=== PATIENT | female | born 1980 | race Caucasian/White ===

== ENCOUNTER 2017-03-28 10:38 | Emergency (ER) | payer BC ==
[~2017-03-28] VITALS: Ht 157.5 cm; Wt 69.5 kg
[~2017-03-28 10:38] MED LIST: BUTA1CAP57; DOCU-131 PO; IBUP-1222 PO; IBUP200T48 PO; LEVO112C2; LEVO125T5 PO; ONDA4TAB10 PO; OXYC-302 PO; OXYC-307 PO; PREN1TAB27 PO; [UNRECOGNIZED DRUG - CODE] PO
[2017-03-28 10:40] VITALS: BP 148/95
[2017-03-28] MEDS ORDERED: ONDANSETRON 2MG/ML, 2ML IVPush ONE (13:00)
[2017-03-28] MEDS ORDERED: SODIUM CHLORIDE FLUSH 10ML SYR IVF ONE (13:00)
[2017-03-28] MEDS ORDERED: HYDROmorphone 1 MG/ML, 1ML IVPush PRN (13:00)
[2017-03-28] MEDS ORDERED: HYDROmorphone 1 MG/ML, 1ML IM ONE (13:00)
[2017-03-28] MEDS ORDERED: SODIUM CHLORIDE 0.9% 1,000ML IVBOLUS ONE (13:00)
[2017-03-28] MEDS ORDERED: ONDANSETRON ODT 4 MG PO ONE (13:00)
[2017-03-28] MEDS ORDERED: ONDANSETRON ODT 4 MG ONE (13:17)
[2017-03-28] MEDS ORDERED: HYDROmorphone 2 MG/ML, 1ML ONE ×3 (13:18→15:19)
== END 2017-03-28 15:21 | disposition home or self-care (01) ==
LOC: ED 13:44
DX: S52.572A Other intraarticular fracture of lower end of left radius, initial encounter for closed fracture (principal); E03.9 Hypothyroidism, unspecified; X50.9XXA Other and unspecified overexertion or strenuous movements or postures, initial encounter; Y93.89 Activity, other specified; Y92.89 Other specified places as the place of occurrence of the external cause; Y99.8 Other external cause status
CPT/HCPCS: 29125; 73110; 73130; 73200; 96372; 99284; J1170; Q0162

== ENCOUNTER 2017-04-03 12:59 | Day surgery (SDC) | payer BC ==
[~2017-04-03] VITALS: Ht 157.5 cm; Wt 68.1 kg
[2017-04-03 13:58] VITALS: BP 129/90
[2017-04-03] MEDS ORDERED: LACTATED RINGERS 1,000 ML IV SCH (14:03)
[2017-04-03] MEDS ORDERED: TOPI25TA32 PO (14:05)
[2017-04-03] MEDS ORDERED: OXYC1TAB7 PO (14:05)
[2017-04-03 14:31] LABS: HCG UR LOT HCG7030192
[2017-04-03 14:36] LABS: HCG UR OBC PASS
[2017-04-03] MEDS ORDERED: FENTANYL PF 250 MCG/5ML ONE (14:43)
[2017-04-03] MEDS ORDERED: MIDAZOLAM 1 MG/ML, 2ML ONE (14:43)
[2017-04-03] MEDS ORDERED: CEFAZOLIN 1,000 MG ONE (14:44)
[2017-04-03] MEDS ORDERED: ONDANSETRON 2MG/ML, 2ML ONE (14:44)
[2017-04-03] MEDS ORDERED: DEXAMETHASONE 4 MG/ML, 1ML ONE (14:44)
[2017-04-03] MEDS ORDERED: GLYCOPYRROLATE 0.2MG/1ML, 5ML ONE (14:44)
[2017-04-03] MEDS ORDERED: ROCURONIUM 10 MG/ML,10ML ONE ×2 (14:44)
[2017-04-03] MEDS ORDERED: NEOSTIGMINE 1 MG/ML, 10ML ONE (14:44)
[2017-04-03] MEDS ORDERED: SUCCINYLCHOLINE 20 MG/ML, 10ML ONE (14:44)
[2017-04-03] MEDS ORDERED: PROPOFOL 10 MG/ML, 20ML ONE (14:44)
[2017-04-03] MEDS ORDERED: SCOPOLAMINE PATCH, 1.5MG PATCH.TD72 TD ONE ×2 (15:31)
[2017-04-03] MEDS ORDERED: EPINEPHRINE 1 MG/ML, 1ML ONE (15:37)
[2017-04-03] MEDS ORDERED: BUPIVACAINE/PF 0.5% ONE (15:37)
[2017-04-03] MEDS ORDERED: FENTANYL PF 100 MCG/2ML IV PRN (16:30)
[2017-04-03] MEDS ORDERED: ACETAMINOPHEN 325 MG TABLET PO PRN (16:30)
[2017-04-03] MEDS ORDERED: LABETALOL 5MG/ML, 20ML IV PRN (16:30)
[2017-04-03] MEDS ORDERED: MEPERIDINE/PF 25MG/0.5ML IVPush PRN (16:30)
[2017-04-03] MEDS ORDERED: ALBUTEROL SULFATE 2.5 MG/3 ML NPPB PRN (16:30)
[2017-04-03] MEDS ORDERED: hydrALAzine 20 MG/ML, 1ML IV PRN (16:30)
[2017-04-03] MEDS ORDERED: LORazepam 2 MG/ML, 1ML IVPush PRN (16:30)
[2017-04-03] MEDS ORDERED: OXYcodone 5 MG/5 ML ORAL.SOL UDC PO PRN (16:30)
[2017-04-03] MEDS ORDERED: PROMETHAZINE 25 MG/ML, 1ML IV PRN (16:30)
[2017-04-03] MEDS ORDERED: HYDROmorphone 1 MG/ML, 1ML IV PRN (16:30)
[2017-04-03] MEDS ORDERED: ACETAMINOPHEN 325 MG TABLET ONE (17:12)
[2017-04-03] MEDS ORDERED: ACETAMINOPHEN 650 MG/20.3 ML UDC ONE (17:12)
[2017-04-03] MEDS ORDERED: OXYcodone 5 MG/5 ML ORAL.SOL UDC ONE (17:12)
== END 2017-04-03 18:35 ==
LOC: OUT 12:59
PROVIDERS: ATTEND Orthopaedic Surgery
DX: S52.572A Other intraarticular fracture of lower end of left radius, initial encounter for closed fracture (principal); X58.XXXA Exposure to other specified factors, initial encounter; Y93.89 Activity, other specified; Y92.89 Other specified places as the place of occurrence of the external cause; Y99.8 Other external cause status
CPT/HCPCS: 25608; 73100; 76000; 81025; C1713; C1776; J0690; J1100; J2250; J2405; J2704; J3010; J7120; J0171; J2710; J3490; J0330

== ENCOUNTER 2019-03-30 21:49 | Emergency (ER) | payer BC ==
[~2019-03-30] VITALS: Ht 157.5 cm; Wt 68.6 kg
[~2019-03-30 21:49] MED LIST changes: -IBUP200T48 PO; +IBUP200T49 PO; +OXYC1TAB7 PO; +TOPI25TA32 PO
[2019-03-30] MEDS ORDERED: ONDANSETRON 2MG/ML, 2ML ONE (22:55)
[2019-03-30] MEDS ORDERED: KETOROLAC 30 MG/1 ML ONE (22:55)
[2019-03-30] MEDS ORDERED: MORPHINE SULFATE 4 MG/ML, 1ML ONE (22:56)
[2019-03-30] MEDS ORDERED: ONDANSETRON 2MG/ML, 2ML IVPush ONE (23:00)
[2019-03-30] MEDS ORDERED: KETOROLAC 30 MG/1 ML IVPush ONE (23:00)
[2019-03-30] MEDS ORDERED: SODIUM CHLORIDE FLUSH 10ML SYR IVF ONE (23:00)
[2019-03-30 23:01] LABS: BASOPHILS # (AUTO) 0.04 x10^3/uL (0-0.1); BASOPHILS % (AUTO) 0 % (0-1); EOSINOPHILS # (AUTO) 0.17 x10^3/uL (0-0.4); EOSINOPHILS % (AUTO) 2 % (1-7); LYMPHOCYTES # (AUTO) 1.15 x10^3/uL (1-3.4); LYMPHOCYTES % (AUTO) 10 % (22-44); MD NO; MEAN CORPUSCULAR HEMOGLOBIN 30.8 pg (27.0-34.8); MEAN CORPUSCULAR HGB CONC 33.2 g/dL (32.4-35.8); MEAN CORPUSCULAR VOLUME 92.8 fL (80-100); MEAN PLATELET VOLUME 9.1 fL (7.4-10.4); MONOCYTES # (AUTO) 0.23 x10^3/uL (0.2-0.8); MONOCYTES % (AUTO) 2 % (2-9); NEUTROPHILS # (AUTO) 10.12 x10^3/uL (1.8-6.8); NEUTROPHILS % (AUTO) 86 % (42-75); PLATELET COUNT 320 x10^3/uL (130-400); RED CELL DISTRIBUTION WIDTH 12.3 % (9.6-15.2)
[2019-03-30 23:09] LABS: ALANINE AMINOTRANSFERASE 33 U/L (12-78); ALBUMIN 3.9 g/dL (3.4-5.0); ANION GAP 7 mmol/L (5-15); CALCIUM 8.7 mg/dL (8.5-10.1); CHLORIDE 109 mmol/L (98-107); CREATININE 0.86 mg/dL (0.55-1.02)
[2019-03-30] MEDS: MORPHINE SULFATE 4 MG/ML, 1ML IVPush PRN (23:12)
[2019-03-30 23:14] LABS: ALKALINE PHOSPHATASE 109 U/L (45-117); BILIRUBIN,TOTAL 0.3 mg/dL (0.2-1.0); TOTAL PROTEIN 7.5 g/dL (6.4-8.2)
--- NOTE | 2019-03-30 23:35 | NUR ---
PT BACK FROM CT.
--- NOTE | 2019-03-30 23:35 | NUR ---
PT C/O LLQ PAIN RATED /10. STATES ONSET THIS AFTERNOON C 4 EPISODES OF N/V & D. DENIES ANY FEVER OR CHILLS. MEDS PER JUN.
--- NOTE | 2019-03-30 23:51 | NUR ---
PT STATES PAIN IS 6/10 CURRENTLY. AMULATORY TO RESTROOM FOR URINE SAMPLE.
[2019-03-31 00:57] LABS: CULTURE INDICATED? NO; MICROSCOPIC AUTO
[2019-03-31] MEDS ORDERED: MORPHINE SULFATE 4 MG/ML, 1ML ONE (01:19)
[2019-03-31] MEDS ORDERED: HYDROcodone/APAP 5/325 TABLET ONE (01:19)
[2019-03-31] MEDS: MORPHINE SULFATE 4 MG/ML, 1ML IVPush PRN (01:22)
[2019-03-31 01:23] VITALS: BP 100/68
[2019-03-31] MEDS ORDERED: HYDROcodone/APAP 5/325 TABLET PO ONE (01:30)
[2019-03-31] MEDS ORDERED: MORPHINE SULFATE 4 MG/ML, 1ML IVPush PRN (01:30)
[2019-03-31] MEDS ORDERED: PROMETHAZINE 25 MG/ML, 1ML ONE (01:38)
--- NOTE | 2019-03-31 01:50 | NUR ---
ATTEMPTING TO DC PT. FEELING N/V. AWARE. MED PER JUN. WILL CTM.
[2019-03-31] MEDS ORDERED: PROMETHAZINE 25 MG/ML, 1ML IM ONE (02:00)
== END 2019-03-31 02:15 | disposition home or self-care (01) ==
LOC: ED 03-31 00:13
DX: N20.1 Calculus of ureter (principal); G43.909 Migraine, unspecified, not intractable, without status migrainosus; E03.9 Hypothyroidism, unspecified
CPT/HCPCS: 36415; 74176; 80053; 81001; 83690; 84703; 85025; 96372; 96374; 96375; 96376; 99284; J1885; J2270; J2405; J2550

== ENCOUNTER 2019-04-13 19:05 | Emergency (ER) | payer BC ==
[~2019-04-13] VITALS: Ht 160 cm; Wt 67.0 kg
--- NOTE | 2019-04-13 20:24 | NUR ---
PT MOVED TO TRAUMA 2. IV PLACED, PT PLACED ON ALL MONITORING EQUIPMENT, SET UP FOR ENDOSCOPY/SEDATION. QUESTIONS ANSWERED BY PT AND FAMILY. CALL LIGHT WITHIN REACH.
[2019-04-13] MEDS ORDERED: ONDANSETRON 2MG/ML, 2ML ONE (20:43)
[2019-04-13] MEDS ORDERED: PROPOFOL 10 MG/ML, 20ML ONE (20:43)
--- NOTE | 2019-04-13 20:48 | NUR ---
RECEIVED REPORT FROM MANAN SELLERS, ASSUMING CARE OF PT. PT C/O N/V, NOTIFIED, ORDERS RECEIVED FOR ZOFRAN. FAMILY AT BEDSIDE. ENDO AT BEDSIDE. AWAITING GI DOC AT THIS TIME. VSS.
--- NOTE | 2019-04-13 20:53 | NUR ---
GI TO BEDSIDE AT THIS TIME, CURRENTLY ASSESSING PT AND UPDATING ON POC.
[2019-04-13] MEDS ORDERED: ONDANSETRON 2MG/ML, 2ML IVPush ONE (21:00)
[2019-04-13] MEDS ORDERED: PROPOFOL 10 MG/ML, 20ML IVPush ONE (21:00)
[2019-04-13] MEDS ORDERED: LIDOCAINE 2% VISCOUS 15 ML UDC ONE (21:04)
[2019-04-13 21:44] VITALS: BP 123/57
--- NOTE | 2019-04-13 21:47 | NUR ---
PT CURRENTLY WAKING UP FROM CONSCIOUS SEDATION, A&OX4, VSS. CURRENTLY SIPPING SMALL SIPS OF WATER SUCCESSFULLY.
== END 2019-04-13 22:05 | disposition home or self-care (01) ==
LOC: ED 20:00
DX: T18.128A Food in esophagus causing other injury, initial encounter (principal); E03.9 Hypothyroidism, unspecified; X58.XXXA Exposure to other specified factors, initial encounter; Y93.89 Activity, other specified; Y92.89 Other specified places as the place of occurrence of the external cause; Y99.8 Other external cause status
CPT/HCPCS: 43247; 96374; 99285; J2405; 99283

== ENCOUNTER 2019-09-24 20:31 | Emergency (ER) | payer BC ==
[~2019-09-24] VITALS: Ht 157.5 cm; Wt 70.5 kg
[2019-09-24 20:34] VITALS: BP 142/78
--- NOTE | 2019-09-24 20:40 | NUR ---
red cap made aware pt possibly needing Endo Team.
[2019-09-24] MEDS ORDERED: ONDANSETRON 2MG/ML, 2ML ONE (21:00)
--- NOTE | 2019-09-24 21:05 | NUR ---
PROVIDER AT BEDSIDE. MEDS ADMIN PER JUN. PT VOMITTING UP SECRETIONS. AMINATA. SPOUSE AT BEDSIDE.
[2019-09-24] MEDS ORDERED: GLUCAGON 1 MG IVPush ONE (21:30)
[2019-09-24] MEDS ORDERED: ONDANSETRON 2MG/ML, 2ML IVPush ONE (21:30)
--- NOTE | 2019-09-24 21:53 | NUR ---
PT STATES SHE FELT THE FOOD MOVING, PROVIDED PT SODA TO DRINK. PT STATES THE SODA WORKED AND FOOD HAS PASSED THE ESOPHOGUS.
== END 2019-09-24 21:56 | disposition home or self-care (01) ==
LOC: ED 21:55
DX: T18.128A Food in esophagus causing other injury, initial encounter (principal); E03.9 Hypothyroidism, unspecified; G43.909 Migraine, unspecified, not intractable, without status migrainosus; X58.XXXA Exposure to other specified factors, initial encounter; Y93.89 Activity, other specified; Y92.89 Other specified places as the place of occurrence of the external cause; Y99.8 Other external cause status
CPT/HCPCS: 96374; 99283; J2405

== ENCOUNTER 2020-01-15 20:26 | Observation (INO) | payer BC ==
[~2020-01-15] VITALS: Ht 157.5 cm; Wt 73.5 kg
--- NOTE | 2020-01-15 20:35 | NUR ---
ASSESSMENT MADE. CHART UP FOR MD TO SEE.
--- NOTE | 2020-01-15 20:41 | NUR ---
ERP AT BEDSIDE.
[2020-01-15] MEDS ORDERED: DIPHENHYDRAMINE 50 MG/ML, 1ML ONE ×2 (20:57→22:04)
[2020-01-15] MEDS ORDERED: KETOROLAC 30 MG/1 ML ONE (20:57)
[2020-01-15] MEDS ORDERED: METOCLOPRAMIDE 5 MG/ML, 2ML ONE ×2 (20:57→22:04)
[2020-01-15] MEDS ORDERED: KETOROLAC 30 MG/1 ML IVPush ONE (21:00)
[2020-01-15] MEDS ORDERED: DIPHENHYDRAMINE 50 MG/ML, 1ML IVPush ONE (21:00)
[2020-01-15] MEDS ORDERED: METOCLOPRAMIDE 5 MG/ML, 2ML IVPush ONE (21:00)
--- NOTE | 2020-01-15 21:15 | NUR ---
PIV PLACED, PATIENT MEDICATED PER EMAR. TOLERATED WELL
--- NOTE | 2020-01-15 21:44 | NUR ---
PATIENT TO CT
[2020-01-15] MEDS ORDERED: MAGNESIUM SULFATE PMX 2GM/50ML 50 ML ONE (22:07)
[2020-01-15] MEDS ORDERED: DEXAMETHASONE 4 MG/ML, 1ML ONE (22:07)
--- NOTE | 2020-01-15 22:19 | NUR ---
PATIENT MEDICATED PER EMAR
[2020-01-15] MEDS ORDERED: DEXAMETHASONE 4 MG/ML, 1ML IVPush ONE (22:30)
[2020-01-15] MEDS ORDERED: MAGNESIUM SULFATE PMX 2GM/50ML 50 ML IV ONE (22:30)
--- NOTE | 2020-01-15 23:21 | NUR ---
Patient resting on gurney, respirations even and unlabored, states mild relief from migraine, Informed patient that medication has about 1hr left to infuse, patient agreeable to finish medication. Monitoring in place, AMINATA RAMIREZ. Call light in reach
--- NOTE | 2020-01-16 00:08 | NUR ---
ERP to room for re-evaluation, mag sulfate complete. Patient report no improvement with migraine. Patient to be admitted
[2020-01-16 00:24] LABS: MEAN CORPUSCULAR HEMOGLOBIN 30.4 pg (27.0-34.8); MEAN CORPUSCULAR HGB CONC 33.2 g/dL (32.4-35.8); MEAN PLATELET VOLUME 9.4 fL (7.4-10.4); PLATELET COUNT 253 x10^3/uL (130-400); RED CELL DISTRIBUTION WIDTH 12.8 % (9.6-15.2)
--- NOTE | 2020-01-16 00:29 | NUR ---
Report given to MARLO Shore. Plan of care discussed. IVF infusing at time of transfer
[2020-01-16] MEDS ORDERED: SODIUM CHLORIDE 0.9% 1,000ML IVBOLUS ONE (00:30)
[2020-01-16 00:35] LABS: ANION GAP 6 mmol/L (5-15); CALCIUM 8.4 mg/dL (8.5-10.1); CHLORIDE 109 mmol/L (98-107)
[2020-01-16 00:56] LABS: BASOPHILS # (AUTO) 0.02 x10^3/uL (0-0.1); BASOPHILS % (AUTO) 0 % (0-1); EOSINOPHILS # (AUTO) 0.27 x10^3/uL (0-0.4); EOSINOPHILS % (AUTO) 3 % (1-7); LYMPHOCYTES % (AUTO) 16 % (22-44); MD SCAN; MONOCYTES # (AUTO) 0.16 x10^3/uL (0.2-0.8); MONOCYTES % (AUTO) 2 % (2-9); NEUTROPHILS # (AUTO) 7.17 x10^3/uL (1.8-6.8); NEUTROPHILS % (AUTO) 79 % (42-75)
[2020-01-16] MEDS ORDERED: PANT20TA2 PO (01:35)
[2020-01-16] MEDS ORDERED: PANT40TA3 PO (01:37)
[2020-01-16] MEDS ORDERED: GALC120P INJ (01:38)
[2020-01-16] MEDS ORDERED: ZOLP10TA PO (01:39)
[2020-01-16 01:54] VITALS: BP 105/64
[2020-01-16] MEDS ORDERED: TRAZODONE 50MG TABLET PO PRN (02:00)
[2020-01-16] MEDS ORDERED: LABETALOL 5MG/ML, 20ML IVPush PRN (02:00)
[2020-01-16] MEDS ORDERED: ACETAMINOPHEN 325 MG TABLET PO PRN (02:00)
[2020-01-16] MEDS: LACTATED RINGERS 1,000 ML IV SCH ×2 (02:46→11:28)
[2020-01-16] MEDS: HYDROmorphone 2 MG/ML, 1ML IVPush PRN ×3 (02:46→07:13)
[2020-01-16 03:08] LABS: FREE T4 (FREE THYROXINE) 0.72 ng/dL (0.76-1.46)
[2020-01-16] MEDS: ONDANSETRON 2MG/ML, 2ML IVPush PRN ×2 (03:16→22:12)
[2020-01-16 05:27] LABS: ALBUMIN 3.5 g/dL (3.4-5.0); ANION GAP 9 mmol/L (5-15); CALCIUM 7.7 mg/dL (8.5-10.1); CHLORIDE 112 mmol/L (98-107)
[2020-01-16 05:28] LABS: CREATININE 0.82 mg/dL (0.55-1.02)
[2020-01-16 05:59] LABS: HCG UR SG 1.011 (1.003-1.030)
[2020-01-16] MEDS: LEVOTHYROXINE 125 MCG TABLET PO SCH (07:12)
[2020-01-16] MEDS: PANTOPRAZOLE 40MG TABLET PO SCH (07:12)
[2020-01-16 09:01] VITALS: BP 94/56
[2020-01-16] MEDS: DIPHENHYDRAMINE 50 MG/ML, 1ML IVPush PRN ×2 (11:24→22:12)
[2020-01-16] MEDS: METOCLOPRAMIDE 5 MG/ML, 2ML IVPush PRN ×2 (11:24→17:57)
[2020-01-16] MEDS: KETOROLAC 30 MG/1 ML IV PRN ×2 (11:24→22:12)
[2020-01-16] MEDS ORDERED: LORazepam 2 MG/ML, 1ML IVPush ONE (12:30)
[2020-01-16 14:04] VITALS: BP 97/60
[2020-01-16] MEDS ORDERED: DIHYDROERGOTAMINE 1 MG/ML, 1ML IVPush PRN (15:30)
[2020-01-16 19:03] VITALS: BP 96/54
[2020-01-17 02:31] VITALS: BP 100/58
[2020-01-17] MEDS: PANTOPRAZOLE 40MG TABLET PO SCH (05:28)
[2020-01-17] MEDS: LEVOTHYROXINE 125 MCG TABLET PO SCH (05:29)
[2020-01-17 09:11] VITALS: BP 103/67
[2020-01-17] MEDS ORDERED: POLYETHYLENE GLYCOL 17 GM PACKET NG ONE (10:30)
[2020-01-17] MEDS ORDERED: LEVO175T5 PO (13:20)
== END 2020-01-17 13:20 | disposition home or self-care (01) ==
LOC: ED 20:56 → EDIP 01-16 00:20 → INTOOBSV 01-16 00:20 → 4NW 01-16 01:33 → DCLOUNGE 01-17 13:10
PROVIDERS: ADMIT Family Medicine; ATTEND Internal Medicine
DX: G43.919 Migraine, unspecified, intractable, without status migrainosus (principal); R20.2 Paresthesia of skin; G51.31 Clonic hemifacial spasm, right; E03.9 Hypothyroidism, unspecified; K20.0 Eosinophilic esophagitis; F51.04 Psychophysiologic insomnia; Z79.899 Other long term (current) drug therapy
CPT/HCPCS: 36415; 70450; 70546; 80048; 81025; 82040; 82330; 84439; 84443; 85025; 96361; 96365; 96366; 96375; 96376; 99285; G0378; J1100; J1110; J1170; J1200; J1885; J2060; J2405; J2765; J3475; J7030; J7120

== ENCOUNTER 2020-08-09 11:03 | Emergency (ER) | payer BC ==
[~2020-08-09] VITALS: Ht 157.5 cm; Wt 68.0 kg
[~2020-08-09 11:03] MED LIST changes: +GALC120P INJ; +LEVO175T5 PO; -OXYC-302 PO; -OXYC-307 PO; +OXYC-380 PO; +OXYC1TAB14 PO; +PANT20TA2 PO; +PANT40TA3 PO; +ZOLP10TA PO
--- NOTE | 2020-08-09 12:39 | NUR ---
MEDIA LIBRARIAN: PT AMBULATORY TO ROOM FROM [facility]
[2020-08-09] MEDS ORDERED: METOCLOPRAMIDE 5 MG/ML, 2ML ONE (13:30)
[2020-08-09] MEDS ORDERED: KETOROLAC 30 MG/1 ML IVPush ONE (13:30)
[2020-08-09] MEDS ORDERED: METOCLOPRAMIDE 5 MG/ML, 2ML IVPush ONE (13:30)
[2020-08-09] MEDS ORDERED: KETOROLAC 30 MG/1 ML ONE (13:31)
--- NOTE | 2020-08-09 13:52 | NUR ---
with reassessment sanchez not improved at all (still 10/10), arm/leg numbness remain
[2020-08-09] MEDS ORDERED: HYDROmorphone 1 MG/ML, 1ML INJ IV ONE (14:00)
[2020-08-09] MEDS ORDERED: HYDROmorphone 1 MG/ML, 1ML INJ ONE (14:07)
--- NOTE | 2020-08-09 14:55 | NUR ---
REPORT TO [facility] SELLERS
--- NOTE | 2020-08-09 14:57 | NUR ---
PAIN IMPROVED TO 6/10-ERP MADE AWARE
[2020-08-09 15:49] VITALS: BP 110/65
== END 2020-08-09 15:51 | disposition home or self-care (01) ==
LOC: ED 15:24
DX: G43.009 Migraine without aura, not intractable, without status migrainosus (principal); R11.2 Nausea with vomiting, unspecified; E03.9 Hypothyroidism, unspecified
CPT/HCPCS: 96374; 96375; 99284; J1170; J1885; J2765

== ENCOUNTER 2021-01-17 10:05 | Emergency (ER) | payer BC ==
[~2021-01-17] VITALS: Ht 157.5 cm; Wt 69.0 kg
[2021-01-17 17:54] VITALS: BP 132/74
== END 2021-01-17 17:55 | disposition home or self-care (01) ==
LOC: ED 10:12 → EDIP 14:21 → UNDOADMIN 14:21 → ED 17:55
DX: R42 Dizziness and giddiness (principal); R51.9 Headache, unspecified
CPT/HCPCS: 36415; 70450; 80048; 82040; 85025; 96361; 96365; 96372; 96375; 99285; J1100; J1170; J1885; J2765; J7030; Q0162